=== PATIENT | male | born 1965 | race Caucasian/White ===

== ENCOUNTER → 2016-12-09 | Outpatient (CLI) | payer MEDICARE, OTHER ==
[~2016-12-09] MED LIST: BISACODYL10 MG/SUPP PR; CALCIUM 500 +1 EAC2 PO; DIAZEPAM; FISH OIL 1,0001 EACH PO; FOSAMAX PO; IMMUNOTHERAPY; KEPPRA750 MG PO; MONTELUKAST SOD10 MG PO; NEXIUM20 MG PO; OCEAN45 ML; PRILOSEC PO; SENNA8.6 M2 PO; TOBRADEX EYE DRO5 ML OP; TRILEPTAL PO; TYLENOL PV; VITAL-D RX TABL1 TAB PO
--- NOTE | ~2016-12-09 | CT104 ---
[facility] A Service of [facility] RADIOLOGY TEXT RESULTS PATIENT: MARQUES RODRIGUEZ LOCATION: [facility] : 61 UNIT #: [id number] AGE: [address]: LARRY CARRILLO APRN SEX: M ORDER DR: [id number] [facility] [address] [place], [place] [address] [id number] O MR#: [id number] [facility] #: [id number] NAME: MARQUES RODRIGUEZ : 1965 SEX: M STUDY DATE/TIME: 12/09/2016 13:11 UNIT: [facility] ROOM: STUDY DESCRIPTION: CT Orbits Wo Contrast Attending Physician: Larry Carrillo Aprn Referring Physician: Larry Carrillo Aprn Ordering Physician: Larry Carrillo Aprn Primary Care Physician: Jude uDnne Sr., M.D. MEDICAL IMAGING REPORT This report is preliminary unless electronic signature is present EXAM Orbits CT without contrast 12/09/[address] with multiplanar reformats. This CT exam was performed with one or more of the following radiation dose reduction techniques: automatic exposure control, adjustment of mA and/or kV according to patient size, and iterative reconstruction. HISTORY History of right periorbital cellulitis for one week. FINDINGS The study for acute inflammatory disease is limited by the lack of intravenous contrast. Allowing for this, while there may be some right periorbital soft tissue swelling there is no convincing evidence of post septal fat infiltration. Intracranial compartment reveals ventriculomegaly but no acute abnormality. There is paranasal sinus mucosal thickening but no air fluid levels are seen and there is no fracture or bone erosion or destruction. IMPRESSION Study for acute inflammatory disease is limited by the lack of intravenous contrast which shows no convincing evidence of acute intraorbital process on either side. There is no fracture or bone erosion or destruction. Extensive presumably chronic changes in the brain are seen as well. These appear stable since a sinus CT of 12/04/2007. Dictated by... [facility] A Service of [facility] RADIOLOGY TEXT RESULTS PATIENT: MARQUES RODRIGUEZ [facility] UNIT #: [id number] AGE: [address]: LARRY CARRILLO APRN SEX: M ORDER DR: Josh Bartlett M.D. THIS IS AN ELECTRONICALLY VERIFIED REPORT Josh Bartlett M.D. at 12/12/2016 10:32 AM CHARLA/elvis TD: 12/10/2016 13:36 JOB #: [id number] MEDICAL IMAGING REPORT Page 1 of 1 COPY
== END | disposition home or self-care (01) ==
LOC: CCAT 12:44
DX: L03.213 Periorbital cellulitis (principal)
CPT/HCPCS: 70480

== ENCOUNTER → 2017-04-07 | Outpatient (CLI) | payer MEDICARE, OTHER | END | disposition home or self-care (01) | LOC: CSSDAY 10:00 | DX: M81.0 Age-related osteoporosis without current pathological fracture (principal); Z79.899 Other long term (current) drug therapy; Z51.81 Encounter for therapeutic drug level monitoring | CPT/HCPCS: 96372; J0897 ==